=== PATIENT | female | born 1960 | race Caucasian/White ===

== ENCOUNTER 2019-03-13 11:41 | Inpatient (IN) | payer OTHER ==
[2019-03-13] MEDS ORDERED: ACETAMINOPHEN 500 MG TAB PO PRN (12:21)
[2019-03-13] MEDS ORDERED: ONDANSETRON 4 MG/2 ML VIAL IV PRN (12:21)
[2019-03-13] MEDS ORDERED: D5 0.9 NS 1,000 ML IV SCH (13:00)
--- NOTE | 2019-03-13 13:43 | RAD REPORT ---
EXAM DESCRIPTION: CT - Abdomen Pelvis Wo Contrast - 03/13/2019 1:33 pm CLINICAL HISTORY: Abdominal pain. rectal bleeding sp colonoscopy last Tuesday COMPARISON: No comparisons TECHNIQUE: CT imaging of the abdomen and pelvis was performed without contrast. Solid organ and vasc ular assessment is limited due to lack of IV contrast. All CT scans are performed using dose optimization technique as appropriate and may include automated exposure control or mA/KV adjustment according to patient size. FINDINGS: The lower lung martinez are clear. The liver, spleen, pancreas, adrenal glands and kidneys are within normal limits for a limited non-co ntrast examination. No bowel obstruction, free air, free fluid or abscess. The appendix is normal. The osseous structures are within normal limits.Small fat containing inguinal hernias. IMPRESSION: No acute intra-abdominal or pelvic findings. A limited non-contrast examination was performed as detailed.
[2019-03-13 13:47] LABS: Absolute Lymphocytes (CBC) 3.3 K/uL (0.7-4.9); Basophils % 1.1 % (0-1.3); Hematocrit 32.2 % (36.0-45.0); Lymphocytes % 34.8 % (15.3-44.8); MPV 7.7 fL (7.6-11.3)
[2019-03-13 14:18] LABS: Albumin 3.5 g/dL (3.4-5.0); Bilirubin Total 0.4 mg/dL (0.2-1.0); Magnesium 2.4 mg/dL (1.8-2.4); Potassium 4.5 mmol/L (3.5-5.1); Protein, Total 6.9 g/dL (6.4-8.2)
[2019-03-13 14:26] LABS: Ferritin 199.1 ng/mL (8-388); Thyroid Stimulating Hormone 0.741 uIU/mL (0.360-3.740)
--- NOTE | 2019-03-13 15:02 | P.HP ---
Certification for Inpatient Patient admitted to: Observation With expected LOS: <2 Midnights Patient will require the following post-hospital care: None Practitioner: I am a practitioner with admitting privileges, knowledge of patient current condition, hospital course, and medical plan of care. Services: Services provided to patient in accordance with Admission requirements found in Title 42 Section 412.3 of the Code of Federal Regulations Patient History Date of Service: 03/13/19 Primary Care Provider: Dr. Ozuna; GI-Dr. Brunner Reason for admission: Fatigue, melena, rectal bleeding History of Present Illness: 58-year-old female presented to the hospital as a direct admit. I was asked to admit the patient by GI due to melena, fatigue and rectal bleeding. Patient reports that she had a colonoscopy done last Tuesday approximately 8 days ago. Since that time patient has been feeling weak. She initially saw some pink tinge stool after the colonoscopy which was expected. Then throughout the week she became more tired. She started to notice more rectal bleeding with melena. On Tuesday she reported some back pain with dark stool. She saw GI yesterday and had lab drawn. She was started on antibiotic therapy. Today GI recommended admit for observation. GI reports that this is her 3rd colonoscopy within the past 6 months. She had 1 in July then in November, then recently. Patient with history with colon polyps. Last colonoscopy required removal of large polyp. Patient with history of colon polyps, GERD, anxiety, hypothyroidism. She is a former smoker. When I saw the patient she appeared stable. She has been under a great deal of stress having to travel as 1 of her children is about to start college. She had a recent in the family within the past 6 months. Lab shows hemoglobin 10.8, white count 9.4, platelet count of 4 1. Sodium 145, potassium 4.5. BUN of 22, creatinine 0.9 with a GFR 59. Glucose 104. CT scan abdomen and pelvis unremarkable. IV antibiotic therapy, fluids have been initiated. Allergies No Known Allergies Allergy (Verified 03/13/19 14:46) Home medications list reviewed: Yes - Past Medical/Surgical History Diabetic: No -: Hypothyroidism -: GERD with history of esophageal stricture -: Colon polyps -: Anxiety -: Hypertension -: -: Foot surgery Psychosocial/ Personal History: Patient is . She is self-employed. - Family History Father -: Cancer (Colon cancer) Mother -: Cancer (Esophageal cancer) - Social History Smoking Status: Former smoker Alcohol use: Yes CD- Drugs: No Caffeine use: Yes Place of Residence: Home Review of Systems General: Weakness, Malaise, As per HPI Eyes: Unremarkable ENT: Unremarkable Respiratory: Unremarkable Cardiovascular: Unremarkable Gastrointestinal: Nausea, Melena, As per HPI Genitourinary: Unremarkable Musculoskeletal: Back Pain, As per HPI Integumentary: Unremarkable Neurological: Unremarkable Lymphatics: Unremarkable Physical Examination - Vital Signs Temperature: 97.8 F Blood Pressure: 119/56 Pulse: 78 Respirations: 18 Pulse Ox (%): 99 - Physical Exam General: Alert, In no apparent distress, Oriented x3, Cooperative HEENT: Atraumatic, Normocephalic, PERRLA, Mucous membr. moist/pink Neck: Supple, No Thyromegaly Respiratory: Clear to auscultation bilaterally, Normal air movement Cardiovascular: Normal pulses, Regular rate/rhythm Gastrointestinal: Normal bowel sounds, Soft and benign, Non-distended, No ascites, No tenderness, No masses, No rebound, No guarding Musculoskeletal: No erythema, No tenderness, No warmth Integumentary: No tenderness/swelling, No erythema, No warmth, No cyanosis Neurological: Normal speech, Normal strength at 5/5 x4 extr, Normal tone, Normal affect - Studies Laboratory Data (last 24 hrs) 03/13/19 13:11: Sodium 145, Potassium 4.5, BUN 22 H, Creatinine 0.98, Glucose 104, Magnesium 2.4, Total Bilirubin 0.4, AST 13 L, ALT 29, Alkaline Phosphatase 68 03/13/19 13:11: WBC 9.4, Hgb 10.8 L, Hct 32.2 L, Plt Count 401 03/13/19 12:30: Sodium Cancelled, Potassium Cancelled, BUN Cancelled, Creatinine Cancelled, Glucose Cancelled, Total Bilirubin Cancelled, AST Cancelled, ALT Cancelled, Alkaline Phosphatase Cancelled Assessment and Plan - Plan Impression: Melena/rectal bleeding status post recent colonoscopy requiring polypectomy Mild anemia likely chronic related to colonoscopy GERD Hypothyroidism Anxiety Hypertension Plan: Melena/rectal bleeding status post recent colonoscopy requiring polypectomy: Patient admitted for observation. Will monitor closely. Case discussed with GI. CT scan unremarkable. H&H stable at this time. Will start with a clear liquid diet and advance as tolerated. Patient started on IV Cipro and Flagyl. Continue IV fluids. Will monitor for excessive rectal bleeding. Will also monitor hemoglobin and hematocrit. Patient may require transfusion if hemoglobin below 7.0. Anticipate discharge within the next 24 hr with clinical improvement. Mild anemia likely chronic related to colonoscopy: Will monitor hemoglobin and hematocrit closely. Continue as above. GERD: Will start Protonix. Hypothyroidism: Tsh/free T4 within normal range. Continue home medication. Anxiety: Will provide medication. Hypertension: Will obtain and verify home medication. Patient reports only using blood pressure medication every now on then. Discharge Plan: Home Plan to discharge in: 24 Hours - Advance Directives Does patient have a Living Will: No Does patient have a Durable POA for Healthcare: No - Code Status/Comfort Care Code Status Assessed: Yes (Patient is full code) Time Spent Managing Pts Care (In Minutes): 55
[2019-03-13] MEDS ORDERED: SODIUM CHLORIDE 0.9% 10ML INJ IV PRN (15:10)
[2019-03-13] MEDS ORDERED: TEMAZEPAM 15 MG CAP PO PRN (15:11)
[2019-03-13 15:13] LABS: Urine Appearance CLEAR; Urine Bilirubin NEGATIVE (NEG); Urine Blood NEGATIVE (NEG); Urine Color YELLOW; Urine Glucose NEGATIVE (NEG); Urine Protein NEGATIVE (NEG); Urine Urobilinogen 0.2 mg/dL (0.2-1.0)
[2019-03-13 15:31] LABS: Urine Microscopic Reflex NO UMIC
[2019-03-13] MEDS: METRONIDAZOLE 500mg IVPB 500 MG/100 ML BAG IV SCH (15:37)
[2019-03-13] MEDS: CIPROFLOXACIN 400mg IV 400 MG/200 ML BAG IV SCH ×2 (15:37→22:42)
[2019-03-13] MEDS: D5 0.45 NS 1,000 ML IV SCH (15:37)
[2019-03-13] MEDS: PANTOPRAZOLE 40 MG INJ IVP SCH (15:38)
[2019-03-13] MEDS: ALPRAZOLAM 0.25 MG TABLET PO PRN (21:36)
[2019-03-14] MEDS: D5 0.45 NS 1,000 ML IV SCH (01:07)
[2019-03-14] MEDS: METRONIDAZOLE 500mg IVPB 500 MG/100 ML BAG IV SCH ×3 (01:07→16:41)
[2019-03-14] MEDS: LEVOTHYROXINE SOD 0.05 MG TABLET PO SCH (05:14)
[2019-03-14 05:57] LABS: Absolute Lymphocytes (CBC) 3.1 K/uL (0.7-4.9); Basophils % 1.5 % (0-1.3); Hematocrit 25.8 % (36.0-45.0); Lymphocytes % 56.2 % (15.3-44.8); MPV 7.5 fL (7.6-11.3)
[2019-03-14 06:13] LABS: Magnesium 2.3 mg/dL (1.8-2.4)
[2019-03-14] MEDS: D5W 1,000 ML IV SCH ×2 (08:00→20:34)
[2019-03-14 08:03] LABS: Hematocrit 27.2 % (36.0-45.0)
[2019-03-14 08:56] LABS: Blood Morphology Comment NOT SEEN (NOT SEEN); Platelet Estimate ADEQ
[2019-03-14] MEDS ORDERED: GOLYTELY 4000 ML PO SCH (09:00)
[2019-03-14] MEDS: BUSPIRONE HCL 15 MG TABLET PO SCH (09:00)
[2019-03-14] MEDS: CIPROFLOXACIN 400mg IV 400 MG/200 ML BAG IV SCH ×2 (09:14→20:33)
[2019-03-14] MEDS: PANTOPRAZOLE 40 MG INJ IVP SCH (09:14)
[2019-03-14] MEDS ORDERED: NA CHLORIDE 0.9% 250 ML ONE (11:26)
--- NOTE | 2019-03-14 13:25 | P.PN ---
Subjective Date of Service: 03/14/19 Primary Care Provider: Dr. Ozuna; GI-Dr. Brunner Chief Complaint: Fatigue, melena, rectal bleeding Subjective: Improving (No significant pain today. She still feels tired. Rectal bleeding improved.) Physical Examination - Vital Signs Temperature: 97.4 F Blood Pressure: 117/64 Pulse: 74 Respirations: 18 Pulse Ox (%): 97 - Physical Exam General: Alert, In no apparent distress, Oriented x3, Cooperative HEENT: Atraumatic Neck: Supple Respiratory: Clear to auscultation bilaterally, Normal air movement Cardiovascular: Normal pulses, Regular rate/rhythm Gastrointestinal: Normal bowel sounds, Soft and benign, Non-distended, No tenderness, No masses, No rebound, No guarding Musculoskeletal: No erythema, No tenderness, No warmth Integumentary: No tenderness/swelling, No erythema, No warmth, No cyanosis Neurological: Normal speech, Normal strength at 5/5 x4 extr, Normal tone, Normal affect - Studies Laboratory Data (last 24 hrs) 03/14/19 07:30: Hgb 9.0 L, Hct 27.2 L 03/14/19 06:00: WBC Cancelled, Hgb Cancelled, Hct Cancelled, Plt Count Cancelled 03/14/19 05:20: Sodium 147 H, Potassium 4.0, BUN 10, Creatinine 0.98, Glucose 121 H, Magnesium 2.3 03/14/19 05:20: WBC 5.4 D, Hgb 8.6 L, Hct 25.8 L, Plt Count 348 03/13/19 19:03: Hgb 9.5 L, Hct 27.0 L D 03/13/19 13:11: Sodium 145, Potassium 4.5, BUN 22 H, Creatinine 0.98, Glucose 104, Magnesium 2.4, Total Bilirubin 0.4, AST 13 L, ALT 29, Alkaline Phosphatase 68 03/13/19 13:11: WBC 9.4, Hgb 10.8 L, Hct 32.2 L, Plt Count 401 Microbiology Data (last 24 hrs): 03/13/19 15:06 Stool Occult Blood - Final Medications List Reviewed: Yes Assessment & Plan Discharge Plan: Home Plan to discharge in: 48 Hours Physician Review Additional Text: Impression: Melena/rectal bleeding status post recent colonoscopy requiring polypectomy suspect lower GI bleed Mild acute anemia likely chronic related to colonoscopy suspect lower GI bleed Hypernatremic and likely related to GI bleed GERD Hypothyroidism Anxiety Hypertension Plan: Melena/rectal bleeding status post recent colonoscopy requiring polypectomy suspect lower GI bleed: Patient has improved but hemoglobin now all below 9.0. Patient slightly hypernatremic. Will give 1 unit of packed red blood cells. Case discussed at length with GI. GI plans for colonoscopy later today. Will keep the patient NPO. Will provide GoLYTELY in preparation for colonoscopy. Await findings on colonoscopy. Continue to monitor hemoglobin. Patient may require more blood if hemoglobin below 8.0. Anticipate discharge in the next 24 -48 hr due to suspected lower GI bleed. Will change the patient from observation to inpatient due to change in status. Mild acute anemia likely chronic related to colonoscopy suspect lower GI bleed: Continue as above. Patient will receive 1 unit of packed red blood cells. Await EGD findings. Will monitor hemoglobin and hematocrit closely. GERD: Continue with Protonix. Hypothyroidism: Tsh/free T4 within normal range. Continue home medication. Anxiety: Will provide medication as needed. Hypertension: Blood pressure stable this time. No need for medication. Time Spent Managing Pts Care (In Minutes): 55
[2019-03-14] MEDS ORDERED: PROPOFOL 200 MG/20 ML VIAL IV ONE (14:52)
[2019-03-14] MEDS ORDERED: LIDOCAINE 1% MPF 5 ML VIAL ONE (14:52)
[2019-03-14] MEDS ORDERED: MIDAZOLAM HCL 2 MG/2 ML INJ ONE (14:54)
[2019-03-14] MEDS ORDERED: EPINEPHRINE 1 MG/ML VIAL SQ ONE (15:10)
[2019-03-14] MEDS: ALPRAZOLAM 0.25 MG TABLET PO PRN (16:41)
[2019-03-14 19:26] LABS: Absolute Lymphocytes (CBC) 2.8 K/uL (0.7-4.9); Basophils % 1.2 % (0-1.3); Hematocrit 26.4 % (36.0-45.0); Lymphocytes % 46.3 % (15.3-44.8); MPV 7.5 fL (7.6-11.3); RBC Red Blood Cell Count 2.96 M/uL (3.86-4.86)
[2019-03-14 19:53] LABS: Potassium 3.3 mmol/L (3.5-5.1)
[2019-03-15] MEDS: ALPRAZOLAM 0.25 MG TABLET PO PRN (00:09)
[2019-03-15] MEDS: METRONIDAZOLE 500mg IVPB 500 MG/100 ML BAG IV SCH ×2 (00:10→09:24)
--- NOTE | 2019-03-15 02:31 | OP ---
Surgeon: Nicolas Brunner MD Procedure Performed: Colonoscopy. Indications For Procedure: Lower GI bleed. Plan For Anesthesia: Monitored anesthesia care. Complexity: Average. Technique: After obtaining informed consent from the patient explaining risks and complications whic h include, but are not limited to bleeding, infection, perforation, and anesthesia complications, pat ient was placed in the left lateral position and sedation was given. From then on, digital rectal ex am was performed. The scope was inserted into the rectum and carefully guided up to the terminal ile um. The cecum was identified by the appendiceal orifice and the ileocecal valve. Scope withdrawal t selene was 10 minutes. Quality of prep segmental poor with some areas of altered blood mixed with stool and liquids. However, most of the colon was able to be cleaned and suctioned. Findings: In the proximal ascending colon 1 cm ulcer was visualized. There was no active bleeding a t the site of the ulcer, however, there was vessel that was seen that may have been the cause of the bleeding. This was injected with epi 1:10,000, 2 cc and 2 hemostasis clips were placed successfully. No other lesion was seen in the colon. Retroflexion revealed grade 1 internal hemorrhoids. Complications: None. Tolerance To Anesthesia: Excellent. Postoperative Diagnosis: Colon ulcer, enterprise vessel may have been source of bleeding status post max atment. Plan: Continue current management. Start back on full liquid diet. Advance as tolerated. Patient probably can be discharged within the next 12 hours. Follow up in the GI Clinic as previously schedu led. /MARCELLA Voice ID: [id number] Report ID: [id number]
[2019-03-15 05:54] LABS: Absolute Lymphocytes (CBC) 2.6 K/uL (0.7-4.9); Basophils % 1.1 % (0-1.3); Lymphocytes % 46.3 % (15.3-44.8); MPV 7.7 fL (7.6-11.3); RBC Red Blood Cell Count 2.92 M/uL (3.86-4.86)
[2019-03-15] MEDS: LEVOTHYROXINE SOD 0.05 MG TABLET PO SCH (05:54)
[2019-03-15 06:08] LABS: Magnesium 2.1 mg/dL (1.8-2.4); Potassium 3.6 mmol/L (3.5-5.1)
[2019-03-15] MEDS ORDERED: POTASSIUM 25 MEQ EFFERV TAB PO ONE (09:00)
[2019-03-15] MEDS: BUSPIRONE HCL 15 MG TABLET PO SCH (09:00)
--- NOTE | 2019-03-15 09:01 | P.DS ---
Admission Date: 03/14/19 Discharge Date: 03/15/19 Primary Care Provider: Dr. Ozuna; GI-Dr. Brunner Disposition: ROUTINE DISCHARGE Discharge Condition: GOOD Reason for Admission: Fatigue, melena, rectal bleeding Consultations: GI-Dr. Brunner Procedures: CT Scan: FINDINGS: The lower lung martinez are clear. The liver, spleen, pancreas, adrenal glands and kidneys are within normal limits for a limited non-contrast examination. No bowel obstruction, free air, free fluid or abscess. The appendix is normal. The osseous structures are within normal limits.Small fat containing inguinal hernias. IMPRESSION: No acute intra-abdominal or pelvic findings. Colonoscopy: Surgeon: Nicolas Brunner MD Procedure Performed: Colonoscopy. Indications For Procedure: Lower GI bleed. Plan For Anesthesia: Monitored anesthesia care. Complexity: Average. Technique: The scope was inserted into the rectum and carefully guided up to the terminal ileum. The cecum was identified by the appendiceal orifice and the ileocecal valve. Scope withdrawal time was 10 minutes. Quality of prep segmental poor with some areas of altered blood mixed with stool and liquids. However, most of the colon was able to be cleaned and suctioned. Findings: In the proximal ascending colon 1 cm ulcer was visualized. There was no active bleeding at the site of the ulcer, however, there was vessel that was seen that may have been the cause of the bleeding. This was injected with epi 1:10,000, 2 cc and 2 hemostasis clips were placed successfully. No other lesion was seen in the colon. Retroflexion revealed grade 1 internal hemorrhoids. Complications: None. Tolerance To Anesthesia: Excellent. Postoperative Diagnosis: Colon ulcer, anvik vessel may have been source of bleeding status post treatment. Plan: Continue current management. Start back on full liquid diet. Advance as tolerated. Patient probably can be discharged within the next 12 hours. Follow up in the GI Clinic as previously scheduled. Medical Problem List: Melena/rectal bleeding status post recent colonoscopy requiring polypectomy suspect lower GI bleed, status post inpatient colonoscopy showing colon ulcer and anvik vessel as likely source of bleeding injected with epinephrine and 2 clips placed Mild acute anemia likely chronic related to colonoscopy suspect lower GI bleed Hypernatremic likely related to GI bleed GERD Hypothyroidism Hyperlipidemia Anxiety Elevated blood pressure without hypertension Brief History of Present Illness: 58-year-old female presented to the hospital as a direct admit. I was asked to admit the patient by GI due to melena, fatigue and rectal bleeding. Patient reports that she had a colonoscopy done last Tuesday approximately 8 days ago. Since that time patient has been feeling weak. She initially saw some pink tinge stool after the colonoscopy which was expected. Then throughout the week she became more tired. She started to notice more rectal bleeding with melena. On Tuesday she reported some back pain with dark stool. She saw GI yesterday and had lab drawn. She was started on antibiotic therapy. Today GI recommended admit for observation. GI reports that this is her 3rd colonoscopy within the past 6 months. She had 1 in July then in November, then recently. Patient with history with colon polyps. Last colonoscopy required removal of large polyp. Patient with history of colon polyps, GERD, anxiety, hypothyroidism. She is a former smoker. When I saw the patient she appeared stable. She has been under a great deal of stress having to travel as 1 of her children is about to start college. She had a recent in the family within the past 6 months. Lab shows hemoglobin 10.8, white count 9.4, platelet count of 4 1. Sodium 145, potassium 4.5. BUN of 22, creatinine 0.9 with a GFR 59. Glucose 104. CT scan abdomen and pelvis unremarkable. IV antibiotic therapy, fluids have been initiated. Hospital Course: Patient presented with melena and hematochezia status post recent colonoscopy requiring polypectomy. Lower GI bleed was suspected. Patient was admitted for further evaluation. Hemoglobin initially 10.8. Hemoglobin was monitored. Patient did not require blood transfusion. Hemoglobin remained stable at 8.8. Patient seen and evaluated by GI. Colonoscopy intervention was required. Colonoscopy showed colon ulcer and anvik vessel that was the likely source of bleeding. It was injected with epinephrine and 2 clips placed. Post procedure patient has done well. Rectal bleeding has resolved. Hemoglobin stable at this time. Patient will be discharged home. At discharge she will continue with Cipro and Flagyl which was started prior to admission. Patient may continue with multi vitamin with slow iron daily. Recommend to recheck lab-CBC , BMP within 1 week. Patient has follow-up appointment with GI in next week. Patient with GERD. At discharge, patient may continue with Protonix 40 mg daily. Recommend follow up with GI to further monitor. Patient with hypothyroidism. At discharge she will continue with her med- levothyroxine 50 mcg daily. Patient with anxiety. Patient may continue with her medication-Buspar 15 mg daily and Restoril 15 mg at bedtime. Patient with history of hypertension. Patient has been using Bystolic 2.5 mg as needed. Patient likely with elevated blood pressure without hypertension. Blood pressures have remained stable. No need for blood pressure medication at this time. Recommend to discontinue Bystolic. Recommend to monitor blood pressures daily. If her blood pressure remains above 140/90 consistently, she then may require medication. Patient with history of hyperlipidemia. Patient may continue with Repatha injections as directed. Vital Signs/Physical Exam: Temp Pulse Resp BP Pulse Ox 97.3 F 70 15 106/60 98 03/15/19 08:00 03/15/19 08:00 03/15/19 08:00 03/15/19 08:00 03/15/19 08:00 General: Alert, In no apparent distress, Oriented x3, Cooperative HEENT: Atraumatic Neck: Supple Respiratory: Clear to auscultation bilaterally, Normal air movement Cardiovascular: Normal pulses, Regular rate/rhythm Gastrointestinal: Normal bowel sounds, Soft and benign, Non-distended Musculoskeletal: No erythema, No tenderness, No warmth Integumentary: No tenderness/swelling, No erythema, No warmth, No cyanosis Neurological: Normal speech, Normal strength at 5/5 x4 extr, Normal tone, Normal affect Laboratory Data at Discharge: WBC 5.7 K/uL (4.3-10.9) 03/15/19 05:16 Hgb 8.8 g/dL (12.0-15.0) L 03/15/19 05:16 Hct 26.0 % (36.0-45.0) L 03/15/19 05:16 Plt Count 347 K/uL (152-406) 03/15/19 05:16 Sodium 147 mmol/L (136-145) H 03/15/19 05:16 Potassium 3.6 mmol/L (3.5-5.1) 03/15/19 05:16 BUN 4 mg/dL (7-18) L 03/15/19 05:16 Creatinine 0.83 mg/dL (0.55-1.3) 03/15/19 05:16 Glucose 119 mg/dL (74-106) H 03/15/19 05:16 Magnesium 2.1 mg/dL (1.8-2.4) 03/15/19 05:16 Total Bilirubin 0.4 mg/dL (0.2-1.0) 03/13/19 13:11 AST 13 U/L (15-37) L 03/13/19 13:11 ALT 29 U/L (12-78) 03/13/19 13:11 Alkaline Phosphatase 68 U/L (45-117) 03/13/19 13:11 Home Medications: Biotin 10,000 mcg PO DAILY 03/13/19 Buspirone HCl 15 mg PO DAILY 03/13/19 Cyclobenzaprine [Flexeril*] 10 mg PO TID 03/13/19 Evolocumab [Repatha Syringe] 140 mg SQ WMP 03/13/19 Lactobacillus Combo No.13 [Probiotic Pearls Complete] 12 mcg PO DAILY 03/13/19 Levothyroxine Sodium 50 mcg PO DAILY 03/13/19 Metronidazole 500 mg PO TID 03/13/19 Multivit-Min/Iron/Folic/Lutein [Centrum Silver Women Tablet] 1 tab PO DAILY Seneca 3,6,9 Combination No.7 [Seneca Dha] 1 tab PO DAILY 03/13/19 Pantoprazole [Protonix Tab*] 40 mg PO DAILY 03/13/19 Phentermine/Topiramate [Qsymia 7.5 mg-46 mg Capsule] 7.5 mg PO DAILY 03/13/19 Temazepam [Restoril*] 15 mg PO BEDTIME PRN MDD 30 03/13/19 levoFLOXacin [Levaquin*] 750 mg PO DAILY 03/13/19 Ferrous Sulfate [Slow Release Iron] 140 mg PO DAILY #30 tablet.er 03/15/19 New Medications: Ferrous Sulfate [Slow Release Iron] 140 mg PO DAILY #30 tablet.er Patient Discharge Instructions: 1. Recommend follow up with PCP in 1-2 week to follow up this hospitalization. 2. Patient presented with melena and hematochezia status post recent colonoscopy requiring polypectomy. Lower GI bleed was suspected. Patient was admitted for further evaluation. Hemoglobin initially 10.8. Hemoglobin was monitored. Patient did not require blood transfusion. Hemoglobin remained stable at 8.8. Patient seen and evaluated by GI. Colonoscopy intervention was required. Colonoscopy showed colon ulcer and anvik vessel that was the likely source of bleeding. It was injected with epinephrine and 2 clips placed. Post procedure patient has done well. Rectal bleeding has resolved. Hemoglobin stable at this time. Patient will be discharged home. At discharge she will continue with Cipro and Flagyl which was started prior to admission. Patient may continue with multi vitamin with slow iron daily. Recommend to recheck lab-CBC, BMP within 1 week. Patient has follow-up appointment with GI in next week. 3. Patient with GERD. At discharge, patient may continue with Protonix 40 mg daily. Recommend follow up with GI to further monitor. 4. Patient with hypothyroidism. At discharge she will continue with her med-levothyroxine 50 mcg daily. 5. Patient with anxiety. Patient may continue with her medication-Buspar 15 mg daily and Restoril 15 mg at bedtime. 6. Patient with history of hypertension. Patient has been using Bystolic 2.5 mg as needed. Patient likely with elevated blood pressure without hypertension. Blood pressures have remained stable. No need for blood pressure medication at this time. Recommend to discontinue Bystolic. Recommend to monitor blood pressures daily. If her blood pressure remains above 140/90 consistently, she then may require medication. 7. Patient with history of hyperlipidemia. Patient may continue with Repatha injections as directed. Diet: GI soft diet then advanced to AHA Activity: Ad ailyn Time spent managing pt's care (in minutes): 55
[2019-03-15] MEDS: PANTOPRAZOLE 40 MG INJ IVP SCH (09:26)
[2019-03-15] MEDS: CIPROFLOXACIN 400mg IV 400 MG/200 ML BAG IV SCH (09:31)
[2019-03-15 11:38] LABS: Hematocrit 28.8 % (36.0-45.0)
== END 2019-03-15 12:10 | disposition home or self-care (01) | DRG 378 ==
LOC: 2ND 11:41 → OBSVTOIN 03-14 20:02
PROVIDERS: ADMIT Family Medicine; ATTEND Family Medicine
PROC: 0W3P8ZZ Control Bleeding in Gastrointestinal Tract, Via Natural or Artificial Opening Endoscopic (ICD-10-PCS; principal; 2019-03-14 14:15)
DX: K92.1 Melena (principal); K63.3 Ulcer of intestine; E87.0 Hyperosmolality and hypernatremia; I99.8 Other disorder of circulatory system; K21.9 Gastro-esophageal reflux disease without esophagitis; E03.9 Hypothyroidism, unspecified; E78.5 Hyperlipidemia, unspecified; F41.9 Anxiety disorder, unspecified; R03.0 Elevated blood-pressure reading, without diagnosis of hypertension; K64.8 Other hemorrhoids; D64.9 Anemia, unspecified
CPT/HCPCS: 36415; 74176; 80048; 80053; 81003; 82274; 82607; 82728; 83540; 83735; 84439; 84443; 84466; 85014; 85018; 85025; 86850; 86900; 86901; C9113; G0378; G0379; J0171; J0744; J2250; J2704